=== PATIENT | female | born 1995 | race Caucasian/White ===

== ENCOUNTER 2017-03-26 19:15 | Emergency (ER) | payer OTHER ==
[~2017-03-26] VITALS: Ht 167.6 cm; Wt 55.0 kg
[~2017-03-26 19:15] MED LIST: AMIT50 PO; CIPR500T4 PO; FLAG500T PO
[2017-03-26 19:17] VITALS: BP 114/77; PULSE 90; RESP 16; TEMP 98.8; O2SAT 100
[2017-03-26] MEDS ORDERED: AMIT50TA3 PO (20:36)
--- NOTE | 2017-03-26 20:50 | PD ---
HPI Chief Complaint: Oral / Dental Pain or Problem Time Seen by Provider: 20:47 Travel History International Travel<30 days: No Contact w/Intl Traveler<30days: No Traveled to known affect area: No History of Present Illness HPI Patient comes in complaining of left lower dental pain that began yesterday. Patient's pain got worse today. Patient took Advil yesterday and seemed to help her symptoms some. Pain is worse with eating or drinking anything. Denies any headache, fevers, difficulty swallowing, chest pain, shortness of breath, , or neck pain. Patient denies anything like this in the past. Reports she has not seen a dentist and a long time. Patient reports pain radiates throughout her jaw. PFSH Past Medical History Arthritis: No Asthma: No Autoimmune Disease: No Depression: Yes Heart Rhythm Problems: No Cancer: No Cardiovascular Problems: No High Cholesterol: No Chest Pain: No Congestive Heart Failure: No COPD: No Cerebrovascular Accident: No Diabetes: No Diminished Hearing: No Endocrine: No GERD: No Genitourinary: No Headaches: Yes Hiatal Hernia: No Immune Disorder: No Kidney Stones: No Musculoskeletal: No Neurologic: No Psychiatric: Yes Reproductive: No Respiratory: No Immunizations Current: Yes Migraines: Yes Renal Failure: No Seizures: No Sickle Cell Disease: No Sleep Apnea: No Thyroid Disease: No Ulcer: No Tetanus Vaccination: Unknown Influenza Vaccination: No ?: Not : 1 Para: 0 : 1 Past Surgical History Surgical History: No Previous Surgery Other Surgery: No Social History Alcohol Use: No Tobacco Use: No Substance Use: No Allergies-Medications (Allergen,Severity, Reaction): Coded Allergies: Penicillin (Verified Allergy, Severe, Hives, 10/30/15) Reported Meds & Prescriptions Reported Meds & Active Scripts Active Naprosyn (Naproxen) 500 Mg Tab 500 Mg PO BID PRN Clindamycin (Clindamycin HCl) 150 Mg Cap 2 Tab PO Q6H 10 Days Reported Amitriptyline (Amitriptyline HCl) 50 Mg Tab 50 Mg PO HS Review of Systems Except as stated in HPI: all other systems reviewed are Neg Physical Exam Narrative GENERAL: Well-developed, well nourished, in no acute distress, and non-ill appearing. SKIN: Focused skin assessment warm and dry. HEAD: Atraumatic. Normocephalic. EYES: Pupils equal and round. EOMI. No scleral icterus. No injection or drainage. ENT: No nasal bleeding or discharge. Mucous membranes pink and moist. Posterior pharynx nonerythematous without exudate. Uvula is midline. Patient has severely decaying tooth left lower molar #18 is tender to palpation patient reports associated for pain. There is no visible or palpable abscess. Floor the mouth, submandibular, and submental are all to soft palpation. NECK: Trachea midline. No cervical lymphadenopathy. Supple. No nuclear rigidity. RESPIRATORY: No accessory muscle use. No respiratory distress. MUSCULOSKELETAL: No obvious deformities. No clubbing. No cyanosis. No edema. Full range of motion. NEUROLOGICAL: Awake and alert. No obvious cranial nerve deficits. Motor grossly within normal limits. Normal speech. PSYCHIATRIC: Appropriate mood and affect; insight and judgment normal. Data Data Last Documented VS Vital Signs Date Time Temp Pulse Resp B/P Pulse Ox O2 Delivery O2 Flow Rate FiO2 03/26/17 19:17 98.8 90 16 114/77 100 Room Air MDM Medical Decision Making Medical Screen Exam Complete: Yes Emergency Medical Condition: Yes Differential Diagnosis Dental abscess, dental infection, dentalgia, other Narrative Course The patient presented with dental pain. There is no fever. There is no significant facial swelling or evidence of cellulitis. There is poor dentition but no evidence of drainable abscess at this time. There is no evidence of significant deep or invading abscess at this time. The patient will be placed on antibiotics and pain medication. The patient was instructed to follow up with a dentist. The patient was given the dental referral sheet. Warnings were discussed with the patient regarding worsening of infection. The patient is to return if pain worsens, develops progressive swelling or facial redness or fever. The patient agrees with plan. Patient in no obvious distress upon re-evaluation. Patient was asked if they wanted to speak to my attending, which the patient did not wish to do at this time. Any questions/concerns in reference to patient diagnosis/condition discussed and clarified prior to patient's discharge. Reinforced sheer importance of close follow up with patient's primary physician or primary care clinic and/or dentist. Instructed patient to return to ED immediately, if symptoms return/worsen. Pt showed understanding of above instructions. Further instructions and recommendations were detailed in discharge paperwork. Pt ambulated without difficulty out of ED at discharge. Diagnosis Primary Impression: Infected dental carries Patient Instructions: Dental Abscess (ED), Dental Caries (ED), General Instructions Additional Instructions: Follow-up with your primary care physician and dentist as soon as possible. Rinse mouth with warm salt water gargles. Take all medication as prescribed. Take probiotics [id number] prevent diarrhea. Follow instructions on the packaging. Return to the emergency department if symptoms get worse. Med/Other Pt SpecificInfo: Prescription(s) given Scripts Naproxen (Naprosyn)500 Mg [id number] Mg PO BID PRN (PAIN SCALE 1 TO 10) #14 TAB Ref 0 Prov:Tish Schulte MD 03/26/17 Clindamycin 150 Mg Cap2 Tab PO Q6H 10 Days Ref 0 Prov:Tish Schulte MD 03/26/17 Disposition: 01 DISCHARGE HOME Condition: Stable Abilio Waters Mar 26, 2017 20:50
[2017-03-26] MEDS ORDERED: NAPR500 PO (20:51)
[2017-03-26] MEDS ORDERED: CLIN1CAP5 PO (20:51)
== END 2017-03-26 21:49 | disposition home or self-care (01) ==
LOC: NEPK 19:15
DX: K02.9 Dental caries, unspecified (principal)
CPT/HCPCS: 99284

== ENCOUNTER 2017-08-18 23:02 | Emergency (ER) | payer OTHER ==
[~2017-08-18] VITALS: Ht 175.3 cm; Wt 58.0 kg
[~2017-08-18 23:02] MED LIST changes: -AMIT50 PO; +AMIT50TA3 PO; -CIPR500T4 PO; +CLIN150C14 PO; -FLAG500T PO; +NAPR500 PO
[2017-08-18 23:28] VITALS: BP 123/87; PULSE 110; RESP 12; TEMP 98.3; O2SAT 99
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
[2017-08-19] MEDS ORDERED: ALPRAZolam 0.5 MG TAB PO ONE (00:30)
[2017-08-19 01:03] VITALS: BP 132/88; PULSE 92; RESP 12; O2SAT 98
--- NOTE | 2017-08-19 09:30 | EKG ---
Date Performed: 08/18/2017 Time Performed: 23:39:59 PTAGE: 21 years EKG: Sinus rhythm WITH SINUS ARRHYTHMIA NORMAL ECG NO PREVIOUS TRACING DOCTOR: Filemon Olivas Interpretating Date/Time 08/19/2017 09:29:34
== END 2017-08-19 01:03 | disposition home or self-care (01) ==
LOC: NEPD 23:02
DX: F41.9 Anxiety disorder, unspecified (principal)
CPT/HCPCS: 93005; 99283